=== PATIENT | female | born 1985 | race Caucasian/White ===

== ENCOUNTER 2018-10-29 08:31 | Inpatient (IN) | payer OTHER ==
[~2018-10-29] VITALS: Ht 160 cm; Wt 90.9 kg
[2018-10-29] MEDS ORDERED: LACTATED RINGERS 1,000 ML IV SCH (10:09)
[2018-10-29] MEDS ORDERED: LACTATED RINGERS 1,000 ML IVBOLUS ONE (10:30)
[2018-10-29] MEDS ORDERED: METOCLOPRAMIDE 5 MG/ML, 2ML IV ONE (10:30)
[2018-10-29] MEDS ORDERED: SODIUM CITRATE/CITRIC ACID 15 ML UDC PO ONE (10:30)
[2018-10-29 10:42] VITALS: BP 128/85
[2018-10-29 11:11] LABS: BASOPHILS # (AUTO) 0.05 x10^3/uL (0-0.1); BASOPHILS % (AUTO) 1 % (0-1); EOSINOPHILS % (AUTO) 3 % (1-7); LYMPHOCYTES # (AUTO) 1.83 x10^3/uL (1-3.4); LYMPHOCYTES % (AUTO) 17 % (22-44); MD NO; MEAN CORPUSCULAR HEMOGLOBIN 30.6 pg (27.0-34.8); MEAN CORPUSCULAR HGB CONC 33.1 g/dL (32.4-35.8); MEAN CORPUSCULAR VOLUME 92.4 fL (80-100); MEAN PLATELET VOLUME 9.4 fL (7.4-10.4); MONOCYTES # (AUTO) 0.46 x10^3/uL (0.2-0.8); MONOCYTES % (AUTO) 4 % (2-9); NEUTROPHILS # (AUTO) 8.34 x10^3/uL (1.8-6.8); NEUTROPHILS % (AUTO) 76 % (42-75); PLATELET COUNT 266 x10^3/uL (130-400); RED CELL DISTRIBUTION WIDTH 13.7 % (9.6-15.2)
[2018-10-29] MEDS ORDERED: METOCLOPRAMIDE 5 MG/ML, 2ML ONE (11:16)
[2018-10-29] MEDS ORDERED: SODIUM CITRATE/CITRIC ACID 15 ML UDC ONE (11:16)
[2018-10-29] MEDS ORDERED: NEWBORN KIT ONE (11:16)
[2018-10-29] MEDS ORDERED: OXYTOCIN 30U/ 0.9% NaCL 500ML 500 ML ONE (11:16)
[2018-10-29 11:28] LABS: ALANINE AMINOTRANSFERASE 25 U/L (12-78); ALBUMIN 2.8 g/dL (3.4-5.0); ANION GAP 7 mmol/L (5-15); CALCIUM 8.5 mg/dL (8.5-10.1); CHLORIDE 111 mmol/L (98-107); CREATININE 0.66 mg/dL (0.55-1.02)
[2018-10-29 11:30] LABS: ALKALINE PHOSPHATASE 102 U/L (45-117); BILIRUBIN,TOTAL 0.3 mg/dL (0.2-1.0); TOTAL PROTEIN 6.6 g/dL (6.4-8.2)
[2018-10-29] MEDS ORDERED: morphine SULFATE/PF 0.5 MG/ML, 10ML ONE (12:34)
[2018-10-29] MEDS ORDERED: EPINEPHRINE 1 MG/ML, 1ML ONE (12:36)
[2018-10-29] MEDS ORDERED: ONDANSETRON 2MG/ML, 2ML ONE (13:12)
[2018-10-29] MEDS ORDERED: OXYTOCIN 10 UNITS/ML, 1ML ONE (13:12)
[2018-10-29] MEDS ORDERED: WATER-INJECTION,STERILE 10 ML IV ONE (13:12)
[2018-10-29] MEDS ORDERED: CEFAZOLIN 1,000 MG ONE (13:12)
[2018-10-29] MEDS ORDERED: EPHEDRINE 50 MG/ML, 1ML ONE (13:12)
[2018-10-29] MEDS ORDERED: PHENYLEPHRINE 10 MG/ML ONE (13:12)
[2018-10-29] MEDS: LACTATED RINGERS 1,000 ML IV SCH ×4 (13:47→23:47)
[2018-10-29] MEDS ORDERED: morphine SULFATE 10 MG/ML, 1ML IM PRN (14:00)
[2018-10-29] MEDS ORDERED: CALCIUM CARBONATE 500 MG TAB.CHEW PO PRN (14:00)
[2018-10-29] MEDS ORDERED: MISOPROSTOL 200 MCG TABLET PR PRN (14:00)
[2018-10-29] MEDS ORDERED: MORPHINE SULFATE 4 MG/ML, 1ML IVPush PRN (14:00)
[2018-10-29] MEDS ORDERED: ACETAMINOPHEN 325 MG TABLET PO PRN ×2 (14:00)
[2018-10-29] MEDS ORDERED: SIMETHICONE 80 MG CHEW TAB PO PRN (14:00)
[2018-10-29] MEDS ORDERED: MEASLES,MUMPS&RUBELLA VACC/PF 0.5 ML SQ-VACC PRN (14:00)
[2018-10-29] MEDS ORDERED: OXYcodone/APAP 5/325MG TABLET PO PRN (14:00)
[2018-10-29] MEDS ORDERED: ONDANSETRON 2MG/ML, 2ML IV PRN (14:00)
[2018-10-29] MEDS ORDERED: KETOROLAC 30 MG/1 ML ONE (14:31)
[2018-10-29] MEDS ORDERED: OXYcodone/APAP 5/325MG TABLET ONE (14:31)
[2018-10-29] MEDS: KETOROLAC 30 MG/1 ML IV SCH ×2 (14:33→21:05)
[2018-10-29] MEDS: OXYcodone/APAP 5/325MG TABLET PO PRN ×3 (14:33→23:02)
[2018-10-29] MEDS: OXYTOCIN 30U/ 0.9% NaCL 500ML 500 ML IV SCH ×2 (14:51→23:47)
[2018-10-29 16:00] VITALS: BP 132/78
[2018-10-29 20:00] VITALS: BP 108/74
[2018-10-29 23:23] LABS: BASOPHILS # (AUTO) 0.05 x10^3/uL (0-0.1); BASOPHILS % (AUTO) 0 % (0-1); EOSINOPHILS # (AUTO) 0.42 x10^3/uL (0-0.4); EOSINOPHILS % (AUTO) 3 % (1-7); LYMPHOCYTES # (AUTO) 2.29 x10^3/uL (1-3.4); LYMPHOCYTES % (AUTO) 18 % (22-44); MD NO; MEAN CORPUSCULAR HEMOGLOBIN 30.6 pg (27.0-34.8); MEAN CORPUSCULAR HGB CONC 32.9 g/dL (32.4-35.8); MEAN CORPUSCULAR VOLUME 93.1 fL (80-100); MEAN PLATELET VOLUME 8.7 fL (7.4-10.4); MONOCYTES # (AUTO) 0.65 x10^3/uL (0.2-0.8); MONOCYTES % (AUTO) 5 % (2-9); NEUTROPHILS # (AUTO) 9.57 x10^3/uL (1.8-6.8); NEUTROPHILS % (AUTO) 74 % (42-75); PLATELET COUNT 227 x10^3/uL (130-400); RED BLOOD COUNT 3.17 x10^6/uL (3.82-5.3); RED CELL DISTRIBUTION WIDTH 13.5 % (9.6-15.2)
[2018-10-30 00:05] VITALS: BP 108/75
[2018-10-30] MEDS: OXYcodone/APAP 5/325MG TABLET PO PRN ×5 (03:27→19:49)
[2018-10-30] MEDS: KETOROLAC 30 MG/1 ML IV SCH ×4 (03:27→21:49)
[2018-10-30 03:30] VITALS: BP 119/83
[2018-10-30 04:59] LABS: BASOPHILS # (AUTO) 0.02 x10^3/uL (0-0.1); BASOPHILS % (AUTO) 0 % (0-1); EOSINOPHILS # (AUTO) 0.16 x10^3/uL (0-0.4); EOSINOPHILS % (AUTO) 1 % (1-7); LYMPHOCYTES # (AUTO) 1.45 x10^3/uL (1-3.4); LYMPHOCYTES % (AUTO) 12 % (22-44); MD NO; MEAN CORPUSCULAR HEMOGLOBIN 30.3 pg (27.0-34.8); MEAN CORPUSCULAR HGB CONC 32.8 g/dL (32.4-35.8); MEAN CORPUSCULAR VOLUME 92.1 fL (80-100); MEAN PLATELET VOLUME 8.5 fL (7.4-10.4); MONOCYTES # (AUTO) 0.51 x10^3/uL (0.2-0.8); MONOCYTES % (AUTO) 4 % (2-9); NEUTROPHILS % (AUTO) 83 % (42-75); PLATELET COUNT 221 x10^3/uL (130-400); RED BLOOD COUNT 3.26 x10^6/uL (3.82-5.3); RED CELL DISTRIBUTION WIDTH 13.5 % (9.6-15.2)
[2018-10-30] MEDS: LACTATED RINGERS 1,000 ML IV SCH ×5 (07:25→21:47)
[2018-10-30 07:35] VITALS: BP 126/88
[2018-10-30] MEDS: DOCUSATE 100 MG CAPSULE PO PRN ×2 (07:36→19:49)
[2018-10-30] MEDS: PRENATAL VIT/IRON/FA 1 EACH TABLET PO SCH (09:29)
[2018-10-30] MEDS: OXYTOCIN 30U/ 0.9% NaCL 500ML 500 ML IV SCH ×2 (09:47→19:47)
[2018-10-30] MEDS ORDERED: RHOGAM FROM BLOOD BANK 1 NOTE EA IM/IV ONE (11:30)
[2018-10-30 11:47] VITALS: BP 122/85
[2018-10-30 20:04] VITALS: BP 107/70
[2018-10-31] MEDS: OXYcodone/APAP 5/325MG TABLET PO PRN ×5 (00:23→18:33)
[2018-10-31] MEDS: KETOROLAC 30 MG/1 ML IV SCH ×2 (03:47→09:37)
[2018-10-31] MEDS: OXYTOCIN 30U/ 0.9% NaCL 500ML 500 ML IV SCH ×2 (05:47→15:47)
[2018-10-31] MEDS: LACTATED RINGERS 1,000 ML IV SCH ×5 (05:47→19:25)
[2018-10-31 07:18] VITALS: BP 117/81
[2018-10-31] MEDS: PRENATAL VIT/IRON/FA 1 EACH TABLET PO SCH (09:00)
[2018-10-31] MEDS: DOCUSATE 100 MG CAPSULE PO PRN ×2 (09:37→21:32)
[2018-10-31 19:35] VITALS: BP 236/84
[2018-10-31] MEDS: IBUPROFEN 600 MG TABLET PO PRN (21:32)
[2018-11-01] MEDS: OXYTOCIN 30U/ 0.9% NaCL 500ML 500 ML IV SCH (01:47)
[2018-11-01] MEDS: LACTATED RINGERS 1,000 ML IV SCH ×2 (01:47→05:47)
[2018-11-01] MEDS: IBUPROFEN 600 MG TABLET PO PRN ×2 (03:25→09:37)
[2018-11-01 07:05] VITALS: BP 118/78
[2018-11-01] MEDS ORDERED: IBUP-1222 PO (08:53)
[2018-11-01] MEDS ORDERED: OXYC-302 PO (08:55)
== END 2018-11-01 12:51 | disposition home or self-care (01) | DRG 788 ==
LOC: LDIP 09:54 → 2NW 15:51
PROVIDERS: ADMIT Obstetrics & Gynecology; ATTEND Obstetrics & Gynecology
PROC: 10D00Z1 Extraction of Products of Conception, Low, Open Approach (ICD-10-PCS; principal; 2018-10-29)
PROC: 3E0234Z Introduction of Serum, Toxoid and Vaccine into Muscle, Percutaneous Approach (ICD-10-PCS; 2018-10-30)
DX: O13.4 Gestational [pregnancy-induced] hypertension without significant proteinuria, complicating childbirth (principal); O32.1XX0 Maternal care for breech presentation, not applicable or unspecified; O99.284 Endocrine, nutritional and metabolic diseases complicating childbirth; O26.893 Other specified pregnancy related conditions, third trimester; E03.9 Hypothyroidism, unspecified; Z3A.37 37 weeks gestation of pregnancy; Z37.0 Single live birth; Z67.91 Unspecified blood type, Rh negative
CPT/HCPCS: 36415; J2790; 80053; 82803; 84550; 85025; 85461; 86850; 86900; G0378; J0171; J0690; J1885; J2274; J2405; J2370; J2590; J2765; J7120